=== PATIENT | male | born 1950 | race Caucasian/White ===

== ENCOUNTER → 2019-04-26 | Outpatient (CLI) | payer OTHER ==
[~2019-04-26] MED LIST: ASPI325T70 PO; CONTRAST GIVEN. MC PRN; IOHEXOL 240 MG/ML 50ML VIAL. PO ONE; IOHEXOL 300 MG/ML 100ML VIAL. IV ONE; LISI10TA2 PO; METF500T16 PO; OMEP20CA10 PO; PRAV10TA2 PO; TAMS0.4C97 PO
--- NOTE | 2019-04-26 13:29 | KCIC ---
CT scan of the abdomen and pelvis with contrast 04/26/2019 CLINICAL HISTORY: Lower abdominal pain for several weeks. TECHNIQUE: After the oral and intravenous ministration contrast, contiguous, 5 mm axial sections were obtained to the abdomen and pelvis. One or more of the following individualized dose reduction techniques were utilized for this study: 1. Automated exposure control. 2. Adjustment of the mA and/or kV according to patient size. 3. Use of iterative reconstruction technique. FINDINGS: Images through the lung bases demonstrate minimal dependent subsegmental atelectasis bilaterally. The liver parenchyma has a decreased attenuation consistent with fatty infiltration. Air is seen within the intrahepatic ducts. The spleen, adrenal glands and right kidney are within normal limits. Several rounded low-attenuation lesions are seen involving the left kidney. These measure 3 mm to 1.3 cm in size. They likely represent cysts. The patient is post Whipple procedure. Mild dilatation of the main pancreatic duct within the remaining body/tail of pancreas is seen. No acute focal abnormality of the pancreas is noted. Atherosclerotic calcification of the abdominal aorta and its branches is noted. The abdominal aorta tapers normally. The patient is post cholecystectomy. No free fluid or free air is within the abdomen. Air and stool seen throughout the colon. There is no evidence of bowel obstruction. The patient is post appendectomy. Images through the pelvis demonstrate the urinary bladder with urine. A 5 mm calcification is seen within the left aspect of the urinary bladder consistent with a bladder calculus. This may have recently passed from the distal left ureter. The prostate gland is enlarged consistent with BPH. Calcifications are seen within the prostate gland. No free fluid is noted. Cagelike devices are seen at L4-5 and L5-S1. Very mild S-shaped curvature of the thoracolumbar spine is seen. Degenerative changes are seen involving the lower thoracic and throughout the lumbar spine and both hips. IMPRESSION: 1. 5 mm bladder calculus is seen which may have recently been passed from the distal left ureter. Clinical correlation is recommended. 2. No acute abnormality is seen. Electronically signed by: Alexys Strong MD (04/26/2019 1:26 PM) [place] [id number]
== END | disposition home or self-care (01) ==
LOC: KCIC CT 07:56
PROVIDERS: ATTEND Family Medicine
DX: N21.0 Calculus in bladder (principal); N32.89 Other specified disorders of bladder; N42.89 Other specified disorders of prostate; N28.89 Other specified disorders of kidney and ureter; J98.11 Atelectasis; I70.0 Atherosclerosis of aorta; I10 Essential (primary) hypertension; E11.9 Type 2 diabetes mellitus without complications; Z79.01 Long term (current) use of anticoagulants; Z90.49 Acquired absence of other specified parts of digestive tract; Z86.73 Personal history of transient ischemic attack (TIA), and cerebral infarction without residual deficits
CPT/HCPCS: 74177; Q9966; Q9967